=== PATIENT | male | born 1945 | race Caucasian/White ===

== ENCOUNTER → 2024-04-14 06:59 | Day surgery (SDC) | payer MEDICARE, OTHER, SELFPAY ==
--- NOTE | 2024-04-14 08:09 | ITS.CL.IMPLP ---
Typesetting Supervisor - Implant Loop
Implant Loop
Procedure Report:
Primary Physician: Alpesh Chaidez MD
Primary Wood Heel Fitter Machine: Leann White DO
Procedure Date: 04/14/2024
Procedure: Placement of a loop recorder.
History/Indication:
1. See office H&P for complete history.
2. Patient is a pleasant 79-year-old male with a past medical history significant for hypertension, renal artery stenosis, AAA, dilated aortic root, dyslipidemia, symptomatic paroxysmal atrial fibrillation on Eliquis 5 mg twice daily for stroke
risk reduction undergoing implantable loop recorder for longitudinal AF management/monitoring.
Method:
After informed consent was obtained, the patient was brought to the EP laboratory holding area in a fasting, non-sedated state. Peripheral access was established. The left chest was prepared and draped in a sterile fashion. A 'time out' was
called. Local anesthesia was injected in the subcutaneous tissue. The ILR was injected under the skin. Topical skin adhesive was applied. Steri-strips placed. Site dressed in standard fashion. Following the procedure, the patient was taken to the
recovery area in stable condition. No complications were noted.
Device Data:
[employer]; Model# LINQII; Serial# [id number]
Conclusion:
Successful placement of a loop recorder.
Recommendations:
1. Follow-up will be arranged in the [facility] in 7-10 days for wound check.
2. Routine ILR care.
Dino Atkins DO
Clinical Cardiac Annealing Torch Operator
cc: Alpesh Chaidez MD; Leann White DO
== END | disposition home or self-care (01) ==
LOC: CATH 06:59
PROVIDERS: ATTENDING PHYSICIAN Internal Medicine Cardiovascular Disease; FAMILY PHYSICIAN Family Medicine; OTHER PHYSICIAN Internal Medicine Cardiovascular Disease
DX: Z09 Encounter for follow-up examination after completed treatment for conditions other than malignant neoplasm (principal); I10 Essential (primary) hypertension; I48.0 Paroxysmal atrial fibrillation; Z79.01 Long term (current) use of anticoagulants; E78.5 Hyperlipidemia, unspecified; I71.40 Abdominal aortic aneurysm, without rupture, unspecified; I70.1 Atherosclerosis of renal artery; Z79.899 Other long term (current) drug therapy
CPT/HCPCS: 33285; C1764

== ENCOUNTER → 2025-06-13 10:40 | Outpatient (REF) | payer MEDICARE, OTHER, SELFPAY ==
[2025-06-13 11:11] LABS: Hematocrit 39.4 % (39.0-52.0); Hemoglobin 13.2 g/dL (13.0-18.0); Mean Corp Hgb Conc. 33.5 g/dL (33.0-37.0); Mean Corpuscular Volume 93.1 fL (80.0-94.0); Nucleated Red Blood Cells % 0 % (-); Platelet Count 261 10^3/uL (130-400); Red Cell Dist. Width 13.5 % (11.5-14.5)
[2025-06-13 11:20] LABS: INR 1.03; PT 14.0 Sec (11.4-14.6)
[2025-06-13 11:29] LABS: ALT (SGPT) 16 U/L (0-50); AST (SGOT) 24 U/L (17-59); Albumin 4.2 g/dl (3.5-5.0); Alkaline Phosphatase 75 U/L (38-126); Blood Urea Nitrogen 23 mg/dl (9-20); Calcium 9.5 mg/dl (8.4-10.2); Carbon Dioxide 28 mmol/L (22-30); Chloride 104 mmol/L (98-107); Glucose 105 mg/dl (70-99); Magnesium 1.9 mg/dl (1.6-2.3); Potassium 4.0 mmol/L (3.5-5.1); Sodium 135 mmol/L (135-145); Total Protein 7.3 g/dl (6.3-8.2); eGFR 56.23
== END ==
LOC: SDSPAT 10:40
PROVIDERS: ATTENDING PHYSICIAN Internal Medicine Cardiovascular Disease; FAMILY PHYSICIAN Family Medicine; OTHER PHYSICIAN Internal Medicine Cardiovascular Disease
DX: I48.91 Unspecified atrial fibrillation (principal)
CPT/HCPCS: 36415; 75572; 80053; 83735; 85025; 85610; 86850; 86900; 86901; 93005; Q9967

== ENCOUNTER 2025-07-06 05:58 | Day surgery (SDC) | payer MEDICARE, OTHER, SELFPAY ==
[2025-06-13 10:47] VITALS: BMI 26.7
[2025-07-06] VITALS (14 sets, daily range): BP systolic 99–163; BP diastolic 64–113
--- NOTE | 2025-07-06 07:28 | ITS.CL.ABL ---
Building Contractor - Ablation
Ablation
Procedure Report:
Primary Local Hazmat Driver: Dr Leann White
Procedure Date: 07/06/2025
Patient History:
Patient is a pleasant 72-year-old male with a past medical history significant for hypertension, renal artery stenosis, aortic atherosclerosis, dilated aortic root, dyslipidemia, prediabetes, symptomatic paroxysmal atrial fibrillation.
See H&P for complete details.
Indication:
Symptomatic paroxysmal atrial fibrillation
Arrhythmia Specific History:
Prior Medical Therapies for Rate and Rhythm Control:
[ ] Beta-davida
X Calcium channel-davida
[ ] Amiodarone
[ ] Dronederone
[ ] Sotalol
[ ] Flecainide
[ ] Dofetilide
[ ] Options limited by bradycardia
[ ] Options limited by comorbid renal disease
Prior Procedural Therapies for AF/AFL:
[ ] Cardioversion
[ ] Pulmonary Vein Isolation
[ ] Posterior Wall Isolation
[ ] Additional lines (Specify)
[ ] Surgical Winston-MAZE or PVI (Specify)
Procedure Performed:
X AF ablation procedure (77350) -- includes LA/CS pacing, trans-septal, 3D mapping, + ICE
[ ] +IV drug (75725)
[ ] +Other Arrhythmia (54889)
[ ] +Other AF Line/ablation (79671)
Risks and expected recovery has been explained in detail. Alternative options have been explored, and in a shared-decision making fashion we have decided that this was the most appropriate procedure.
Method
NPO status confirmed. Grounding pad applied. Defibrillator pads applied. Continuous surface ECG, pulse oximetry, and blood pressure were monitored. Procedure was performed under general anesthesia, with anesthesia services.
Both groins were clipped, prepped with Chloraprep, and draped in sterile fashion. Time out was called. Local anesthesia administered. The right femoral vein was accessed for catheter placement, using ultrasound guidance (images saved to record),
micro-puncture needle/wire, and modified seldinger technique. 3 sheaths were placed. The following catheters were used:
[ ] Tacticath SE (D/F Curve) ablation catheter
X Viewflex 9Fr ICE catheter
X Inquiry decapolar 6Fr diagnostic catheter
[ ] CRD Hex 6Fr
X FlexCath Contour 10 Fr with PulseSelect PFA Catheter
X Advisor HD Grid Mapping Catheter, SE
[ ] Acuson AcuNav 8 Fr ICE catheter
[ ]Other: [ ]
Intracardiac ultrasound (ICE) was carefully advanced into the right atrium to guide sheath placement over a J-wire, catheter placement, guide trans-septal puncture, identify potential complications, identify anatomic structures and ensure proper
contact between ablation catheter and tissue. A trace basal LV pericardial effusion was noted at the initiation of procedure. This remained unchanged throughout procedure and at case completion.
Heparin was given prior to trans-septal puncture. Heparin was given to achieve and maintain a target ACT of 300-400 seconds throughout the procedure.
Trans-septal access was performed under ICE guidance. The trans-septal puncture was performed with a SafeSept wire through a Brockenbrough needle assembly through the steerable sheath. The wire was visualized as it entered the LSPV and system
advanced under ICE guidance and fluoroscopy into the LA. The Brockenbrough needle assembly, SafeSept wire and sheath dilator were removed under negative pressure. LA pressure was measured and recorded.
ICE and 3D mapping was performed to identify relevant cardiac structures. A careful 3D map was created to assess for regions of low-voltage and abnormal electrogram signals using HD grid mapping catheter and PulseSelect catheter. Additional mapping
was performed as outlined below.
Prior to ablation, glycopyrrolate was provided. PulseSelect catheter was advanced over J-wire to the ostium of each vein. Pulmonary vein isolation was performed with ostial and antral lesions in a circumferential manner. Contact was visualized via
EAM, ICE, fluoroscopy, and EGM signals.
Following completion of ablation lesions, a post-ablation voltage/activation map was performed in sinus rhythm. Entrance and exit block were confirmed for each vein.
Catheter and sheath were removed from the left atrium and post-ablation intracardiac echo evaluation was consistent with pre-ablation with no changes and no pericardial effusion and there is no left atrial thrombus or left ventricle thrombus seen.
Electrophysiology study was performed. Hemostasis was obtained with figure of 8 stitch for each groin and with manual pressure. Protamine was used for reversal.
Estimated Blood Loss
5 mL
Complications
None
Fluoroscopy: 3.1 minutes; 7.36 mGy; DAP 0.825
LA Pressure: Pre 10 mmHg, post 12 mmHg
Baseline Intervals:
Rhythm: SR
NE: 117 ms
QRS: 94 ms
QT: 387 ms
QTc: 406 ms
A-A: 936 ms
R-R: 936 ms
Post-Procedure Intervals:
NE: 115 ms
QRS: 95 ms
QT: 433 ms
AVWB: 330 ms
AERP: 600/250 ms
Recommendations
- Bedrest with straight-leg precautions as ordered
- Anticipate same day discharge if patient meeting clinical metrics
- Resume home medications as indicated
- Ok to resume anticoagulation tonight if patient and groin sites stable
- Plan for follow-up in office as scheduled
Dino Atkins DO, [facility], [place]
Clinical Cardiac Public Health Engineer
cc: Dr Leann White; Dr Alpesh Chaidez
[2025-07-06 08:47] LABS: ACT-LR - POC 207 Seconds (116-155)
[2025-07-06 09:01] LABS: ACT-LR - POC 292 Seconds (116-155)
[2025-07-06 09:17] LABS: ACT-LR - POC 292 Seconds (116-155)
[2025-07-06 09:50] LABS: ACT-LR - POC 311 Seconds (116-155)
[2025-07-06 10:09] LABS: ACT-LR - POC 194 Seconds (116-155)
[2025-07-06 12:12] LABS: ACT-LR - POC > 397 Seconds (116-155)
[2025-07-06] MEDS: ANESTHETIC LOZENGE 1 LOZENGE PO (12:29)
--- NOTE | 2025-07-06 15:21 | W.PN.UPDATE ---
Update Note
Progress Note Update
Pt seen post PFA. Right groin without ht, non tender. OOB ambulating, developed groin bleed. Managed with manual compression, remains soft and non tender, no further bleeding. Post EKG NSR 65, no acute changes. Resume eliquis tonight. Followup with
Dr. Aburto as scheduled. Home today if groin site/tele stable.
== END 2025-07-06 15:45 | disposition home or self-care (01) ==
LOC: CATH 05:58
PROVIDERS: ATTENDING PHYSICIAN Internal Medicine Cardiovascular Disease; FAMILY PHYSICIAN Family Medicine; OTHER PHYSICIAN Internal Medicine Cardiovascular Disease
DX: I48.0 Paroxysmal atrial fibrillation (principal); I10 Essential (primary) hypertension; N40.0 Benign prostatic hyperplasia without lower urinary tract symptoms; M10.9 Gout, unspecified; Z87.891 Personal history of nicotine dependence; I35.0 Nonrheumatic aortic (valve) stenosis; K21.9 Gastro-esophageal reflux disease without esophagitis; Z79.899 Other long term (current) drug therapy; Z79.01 Long term (current) use of anticoagulants; E78.5 Hyperlipidemia, unspecified; R73.03 Prediabetes; Z90.49 Acquired absence of other specified parts of digestive tract
CPT/HCPCS: C1733; C1766; C1732; C1894; C1730; C1769; C1759; 85347; 86900; 86901; 93005; 93656